=== PATIENT | female | born 1975 | race Caucasian/White ===

== ENCOUNTER 2018-10-19 13:46 | Outpatient (CLI) | payer BC, SELFPAY ==
[2018-10-19 15:57] LABS: Glucose 90 mg/dL (70-100); TSH (W/Ref FT4) 2.23 uIU/mL (0.358-3.74)
== END 2018-10-19 14:06 ==
PROVIDERS: PCP Nurse Practitioner; Visit Provider Nurse Practitioner
DX: E03.9 Hypothyroidism, unspecified (principal)
CPT/HCPCS: 82947; 84443

== ENCOUNTER 2019-01-18 00:58 | Outpatient (CLI) | payer OTHER, SELFPAY ==
--- NOTE | 2019-01-18 12:10 | DI.MAMMO_ITS ---
SYMPTOM/DIAGNOSIS: SCREENING, Z12.31 MAMMOGRAMS: Mammograms were interpreted according to the usual protocol including computer analysis with CAD system, tomosynthesis and C view imaging. Comparison with prior examinations. Breast density B. No suspicious masses or microcalcifications are seen. There is no definite evidence of malignancy. IMPRESSION: Negative mammogram. Routine screening is recommended. Category I. MQSA ASSESSMENT OF FINDINGS: Negative. Category 1. Patient will receive a letter notifying them of these results. BI-RADS category B. There are scattered areas of fibroglandular density.
== END 2019-01-18 01:18 ==
PROVIDERS: PCP Nurse Practitioner; Visit Provider Nurse Practitioner
DX: Z12.31 Encounter for screening mammogram for malignant neoplasm of breast (principal)
CPT/HCPCS: 77063; 77067

== ENCOUNTER 2019-10-20 11:40 | Outpatient (REF) | payer OTHER, SELFPAY ==
[2019-10-20 19:20] LABS: HCT 38.9 % (36.0-46.0); Mean Corp. HGB Concentration 33.4 g/dL (32.0-36.0); Mean Corpuscular Hemoglobin 28.3 pg (27.0-33.0); Mean Corpuscular Volume 84.7 fL (80-95); Platelet Count 242 x1000/uL (130-400); RBC 4.59 m/cumm (4.00-5.20); RBC Distribution Width 13.5 % (11.7-14.6); White Blood Cell Count 5.34 k/cumm (4.4-10.8)
[2019-10-20 19:31] LABS: Total Iron Binding Capacity 360 ug/dL (250-450)
[2019-10-20 20:06] LABS: ALT 32 U/L (14-59); AST 17 U/L (15-37); Alkaline Phosphatase 26 U/L (46-116); BUN 12 mg/dL (7-18); Bilirubin, Total 0.5 mg/dL (0.2-1.0); Calcium 8.7 mg/dL (8.5-10.1); Chloride 102 mmol/L (98-107); Ferritin 24 ng/mL (8-252); Glucose 89 mg/dL (74-106); Potassium 3.6 mmol/L (3.5-5.1); Sodium 140 mmol/L (136-145); TSH (W/Ref FT4) 2.14 uIU/mL (0.36-3.74); Total Protein 7.3 g/dL (6.4-8.2); Vitamin B12 607 pg/mL (193-986)
== END 2019-10-20 12:00 ==
LOC: LBO 11:40
PROVIDERS: PCP Nurse Practitioner; Visit Provider Nurse Practitioner
DX: E03.9 Hypothyroidism, unspecified (principal); R53.83 Other fatigue
CPT/HCPCS: 80053; 85027; 82607; 82728; 83550; 84443

== ENCOUNTER 2021-03-06 03:01 | Outpatient (CLI) | payer BC, SELFPAY ==
[2021-03-07 14:46] LABS: COVID-19 RT-PCR UVMMC Result Positive (Negative)
== END 2021-03-06 03:02 | disposition home or self-care (01) ==
LOC: LBO 03:01
PROVIDERS: PCP Nurse Practitioner; Visit Provider Nurse Practitioner
DX: Z20.822 Contact with and (suspected) exposure to COVID-19 (principal); R53.81 Other malaise
CPT/HCPCS: U0003

== ENCOUNTER 2021-04-24 01:12 | Outpatient (CLI) | payer BC, SELFPAY ==
--- NOTE | 2021-04-24 08:45 | DI.MAMMO_ITS ---
Exam(s) MAMMO SCREENING EXAM: MAMMO SCREENING CLINICAL HISTORY: screening, Z12.39. TECHNIQUE: Bilateral full field digital CC and MLO mammographic images were obtained with 3D tomosyn thesis and utilizing computer aided detection (CAD). COMPARISON: Prior mammograms dating back to 2012, the most recent being January 2019. FINDINGS: Asymmetric density in the left breast is unchanged from prior studies. Asymmetric densities in the r ight breast also unchanged from prior studies. There are no new spiculated masses nor malignant appearing microcalcification groups. There is no significant architectural distortion nor skin thickening-retraction. IMPRESSION: Stable benign findings. No radiographic evidence of malignancy. BI-RADS Category 2 - Benign Findings Breast Density - Category B - Scattered areas of fibroglandular density Breast density Category C or D implies that the patient has dense breast tissue. Dense breast tissue can make it harder to find cancer on a mammogram. Dense breast tissue is also associated with an incr eased risk of breast cancer. This information about the result of the mammogram report was provided to the patient to raise their awareness. Use this report when you speak with the patient about their risks for breast cancer, which includes their family history. At that time, you may recommend additional screening tests (Ultrasoun d or MRI) as these tests may add significant information. A negative radiographic report should not delay biopsy if a dominant or clinically suspicious mass is present. Up to ten percent of cancers are not identified on mammography. A negative report may reinforce clinical impression. Adenosis and dense breasts may obscure an underlying neoplasm. False positive reports average 6 to 10%. Patient will receive a letter notifying them of these results.
[2021-04-24 14:48] LABS: HCT 35.5 % (36.0-46.0); HGB 11.5 g/dL (11.2-15.7); MCHC 32.4 % (32.0-36.0); MCV 86.4 fL (80-95); MPV 10.3 fL (8.0-11.0); Platelet Count 240 10^3/uL (130-400); RBC 4.11 10^6/uL (3.93-5.22); RDW 13.6 % (11.7-14.6); RDW-SD 42.5 fL; WBC 7.19 10^3/uL (4.4-10.8)
[2021-04-24 16:04] LABS: Ferritin 22 ng/mL (8-252); TSH (W/Ref FT4) 1.35 uIU/mL (0.36-3.74); Vitamin B12 491 pg/mL (193-986)
== END 2021-04-24 01:32 ==
PROVIDERS: PCP Nurse Practitioner; Visit Provider Nurse Practitioner
DX: Z12.31 Encounter for screening mammogram for malignant neoplasm of breast (principal)
CPT/HCPCS: 36415; 77063; 77067; 85027; 82607; 82728; 84443

== ENCOUNTER 2021-04-24 15:49 | Outpatient (REF) | payer BC, SELFPAY ==
--- NOTE | 2021-04-24 15:00 | PAPFT_PTH ---
PATIENT: Paola Harp LOC: [facility] U#:[id number] AGE/SX: 45/F ROOM: RE04/24/[address]: MARY ANN Patrick : 1975 BED: DIS: 04/24/2021 SPEC #: [id number] RECD: 04/24/21 18:01 STATUS: GET MERINO #: [id number] SEAN: 04/24/21 15:[address]: Yris Seymour DEPT: [facility] Cytology RECD BY: Carine Aguilar ENTERED: 04/24/21 18:01 SP TYPE: PAPFT CHENG DR: Pat Olmstead APRN Tissues: 1 - CX/ENDOCX FOR PAP SMEARS Procedures: PAP THIN PREP/[facility] Screening HPV DNA PROBE Comments: [id number]
== END 2021-04-24 15:50 | disposition home or self-care (01) ==
LOC: LBN 15:49
PROVIDERS: PCP Nurse Practitioner; Visit Provider Nurse Practitioner Family
DX: Z12.4 Encounter for screening for malignant neoplasm of cervix (principal); Z11.51 Encounter for screening for human papillomavirus (HPV)
CPT/HCPCS: 88142; 87624

== ENCOUNTER → 2022-08-14 01:51 | Outpatient (CLI) | payer BC, SELFPAY ==
--- NOTE | 2022-08-14 11:17 | DI.MAMMO_ITS ---
Exam(s) MAMMO SCREENING EXAM: MAMMO SCREENING CLINICAL HISTORY: screening,z12.39 TECHNIQUE: Mammograms were interpreted according to the usual protocol including computer analysis w [employer] CAD system, tomosynthesis and C-view imaging. COMPARISON: 2012 through 2020 FINDINGS: The breasts are composed of scattered fibroglandular densities, Breast Density category B. No suspicious masses or suspicious microcalcifications are seen. No skin thickening or abnormal axillary lymph nodes are seen. There has been no significant change from prior exams. IMPRESSION: BI-RADS Category 1, Negative mammogram Yearly screening mammography is recommended. Breast Density - Category B, scattered fibroglandular densities. A negative radiographic report should not delay biopsy if a dominant or clinically suspicious mass is present. Up to ten percent of cancers are not identified on mammography. A negative report may reinforce clinical impression. Adenosis and dense breasts may obscure an underlying neoplasm. False positive reports average 6 to 10%. Patient will receive a letter notifying them of these results.
== END ==
PROVIDERS: PCP Nurse Practitioner; Visit Provider Nurse Practitioner
DX: Z12.31 Encounter for screening mammogram for malignant neoplasm of breast (principal)
CPT/HCPCS: 77063; 77067

== ENCOUNTER 2023-04-01 14:33 | Outpatient (CLI) | payer BC, SELFPAY ==
[2023-04-01 10:57] LABS: Abs Immature Grans 0.03 10^3/uL (0.0-0.06); Absolute Basophil Count 0.04 10^3/uL (0.0-0.2); Absolute Eosinophil Count 0.21 10^3/uL (0.0-0.7); Absolute Monocyte Count 0.65 10^3/uL (0.1-0.8); Absolute Neutrophil Count 3.42 10^3/uL (1.2-6.7); Basophils % 0.6; Eosinophils % 3.1; HCT 39.8 % (36.0-46.0); HGB 12.9 g/dL (11.2-15.7); Immature Grans % 0.4; Lymphocytes % 35.6; MCH 27.6 pg (27.0-33.0); MCHC 32.4 % (32.0-36.0); MCV 85 fL (80-95); MPV 9.8 fL (8.0-11.0); Monocytes % 9.6; Neutrophils % 50.7; Platelet Count 239 10^3/uL (130-400); RBC 4.67 10^6/uL (3.93-5.22); RDW 13.8 % (11.7-14.6); RDW-SD 43.3 fL; WBC 6.75 10^3/uL (4.4-10.8)
[2023-04-01 10:59] LABS: ESR 8 mm/hr (0-20)
[2023-04-01 11:51] LABS: Vitamin D 25 Total 43.7 ng/mL (30-100)
[2023-04-01 11:55] LABS: Hemoglobin A1C 5.6 % (<5.7)
[2023-04-01 11:59] LABS: ALT 27 U/L (14-59); AST 14 U/L (15-37); Albumin 3.9 g/dL (3.4-5.0); Alkaline Phosphatase 31 U/L (46-116); Anion Gap 8.6 mmol/L (3-11); BUN 12 mg/dL (7-18); Bilirubin, Total 0.5 mg/dL (0.2-1.0); C-Reactive Protein 0.19 mg/dL (0.0-0.3); CO2 27.4 mmol/L (21.0-32.0); CREATININE 0.8 mg/dL (0.55-1.02); Chloride 103 mmol/L (98-107); Estimated GFR 90.27 (mL/min/1.73m2); Ferritin 25 ng/mL (8-252); Glucose 91 mg/dL (74-106); Potassium 3.8 mmol/L (3.5-5.1); Sodium 139 mmol/L (136-145); TSH (W/Ref FT4) 2.12 uIU/mL (0.36-3.74); Total Protein 7.7 g/dL (6.4-8.2); Vitamin B12 506 pg/mL (193-986)
[2023-04-01 12:13] LABS: Creatine Kinase 60 U/L (26-192)
[2023-04-01 17:18] LABS: Rheumatoid Factor <8.6 IU/mL (<12.0)
[2023-04-02 12:08] LABS: Lyme Ab w Rflx to Lyme Confirm Negative (Negative)
[2023-04-02 12:57] LABS: ANA Interpretation Negative (Negative)
[2023-04-04 09:51] LABS: Anaplasma phagocytophilum Negative (Negative); B. miyamotoi PCR Negative (Negative); Babesia divergens/MO-1 Negative (Negative); Babesia duncani Negative (Negative); Babesia microti Negative (Negative); Ehrlichia chaffeensis Negative (Negative); Ehrlichia ewingii/canis Negative (Negative); Ehrlichia muris eauclairensis Negative (Negative)
== END 2023-04-01 14:34 | disposition home or self-care (01) ==
LOC: LBO 14:34
PROVIDERS: PCP Nurse Practitioner; Visit Provider Nurse Practitioner
DX: E66.9 Obesity, unspecified (principal); M25.50 Pain in unspecified joint; M62.81 Muscle weakness (generalized); R53.83 Other fatigue; E11.9 Type 2 diabetes mellitus without complications
CPT/HCPCS: 36415; 80053; 82306; 82550; 85652; 87798; 82607; 82728; 83036; 84443; 85025; 86038; 86140; 86431; 86618

== ENCOUNTER 2023-04-25 07:05 | Day surgery (SDC) | payer BC, SELFPAY ==
--- NOTE | 2023-04-24 15:33 | W.COLOREPORT ---
Date of service: 04/25/23 Time of Service: 09:44 Colonoscopy Report Date of procedure: 04/25/23 Pre-op diagnosis general: chronic constipation/second degree family member w/ CRC cancer Post-op diagnosis procedure note: other (same + Melanosis coli ) Surgeon: Pratima Max Anesthesia Type: General:No Airway Estimated blood loss (mL): 0 Complications: None Disposition: no change Prep: Miralax/Dulcolax Retraction Time: 8 mins Procedure Description: After informed consent was obtained the patient was taken to the procedure room and placed in a left decubitous position. Monitors were applied and a time out was done. The patients name, date of , procedure, allergies to medications and metal in their body was reviewed. The patient was then sedated. Once sedated and comfortable a rectal exam was done. External exam : Large external hemorrhoids with no thrombosis. Internal exam revealed a normal sphincter tone and no palpable masses. The scope was then introduced and retrofelexed. Without internal hemorrhoidal tags were identified. The scope was then advanced to the cecum difficulty. The TI and appendiceal orifice were identified. There is some mild discoloration of the cecum consistent with melanosis coli. A biopsy was taken. All specimen is retrieved and no bleeding is noted. The prep was BBPS 3 in all segments for a total of 9. The scope was then slowly retracted over 8 minutes back into the rectum. There are no polyps, AVMs, or diverticula appreciated today. The scope was removed and the patient was woken up and taken back to Same day surgery in stable condition. The patient tolerated the procedure well and there were no immediate complications. Follow up: The patient should follow up in 5 years unless they develop changes in bowel habits or other new gastrointestinal complaints.
--- NOTE | 2023-04-24 15:35 | PDOC.DSDIS_ITS ---
Date of service: 04/25/23 Time of Service: 09:36 Discharge Plan Disposition Patient Disposition: Home Condition: Good Discharge Details Reason For Visit: Colonoscopy Attending Provider: Pratima Max Primary Care Provider: Pat Olmstead Home Meds and New Rx's Prescriptions: New polyethylene glycol 3350 [Miralax] 17 gram/dose powder 17 g PO DAILY Qty: 510 12RF Continued magnesium oxide 500 mg capsule 500 mg PO DAILY cholecalciferol (vitamin D3) 25 mcg (1,000 unit) capsule 25 mcg PO DAILY magnesium hydroxide [Milk of Magnesia] 400 mg/5 mL suspension 5 ml PO DAILY PRN lorazepam 0.5 mg tablet 0.5 mg PO DAILY PRN (Reason: anxiety) Qty: 10 0RF ondansetron HCl 4 mg tablet 4 mg PO Q8H PRN (Reason: nausea and vomiting) Qty: 20 0RF albuterol sulfate [ProAir HFA] 90 mcg/actuation HFA aerosol inhaler 2 puff Inhalation Q4H PRN Qty: 8.5 12RF Rx Instructions: DX;ASTHMA. INTOLERANT OF XOPENEX triamcinolone acetonide 0.5 % cream 1 applic Topical BID PRN (Reason: rash) Qty: 80 3RF Rx Instructions: APPLY THIN LAYER TO hands UP TO 3X/DAY. DO NOT USE FOR MORE THAN 2 CONSECUTIVE WEEKS. levothyroxine 50 mcg tablet 50 mcg PO DAILY Qty: 90 3RF Discontinued bisacodyl [Dulcolax (bisacodyl)] 5 mg tablet,delayed release (DR/EC) 5 mg PO ONCE Qty: 4 0RF Rx Instructions: Take per colonoscopy instructions provided by ordering providers office polyethylene glycol 3350 17 gram/dose powder 17 g PO ONCE Qty: 238 0RF Rx Instructions: Take per colonoscopy instructions provided by ordering providers office Discharge Instructions Additional Instructions: DSU Colonoscopy Post- Op Instructions Instructions for Everyone who is given Anesthesia: For your safety, please do the following for the next twenty-four (24) hours: *Do Not operate a motor vehicle (car, truck, motorcycle, etc.) *Do Not drink alcoholic beverages or use any recreational drugs for the first 24 hours or while taking pain medications. The medications in your body may have a reaction that can be dangerous. *Do Not make any important decisions or sign any important papers. Findings: external hemorrhoids. Otherwise normal Follow up: repeat in 5yrs time Starting a Fiber Supplement Dietary fiber is a plant-based nutrient that's necessary for the healthy functioning of your digestive system.? ?In addition to helping your bowels stay regular, it's also useful for maintaining optimum cholesterol and blood sugar levels as well as a healthy weight. Although it's technically a carbohydrate, it's not the kind that can be broken down into digestible sugars by the body. Instead, fiber travels through your digestive system while bulking and softening your stool?making it easier to pass. It also helps absorb excess blood sugars and cholesterols. The [employer] recommends 30 grams (g) of fiber a day for men, and 25g a day for women. Fiber is found in fruits, vegetables, legumes, and whole grains, and is an important part of the diet. But because many people find it difficult to eat the recommended quantity of 25 to 38 g per day, fiber supplementation can be extremely helpful to ease the symptoms of a variety of digestive discomforts like diarrhea and constipation. Today, many fiber supplements are found on the market containing one of three active ingredients: psyllium, methylcellulose, and polycarbophil Health Benefits If you have diarrhea, supplementing with fiber can bulk up the stool and reduce frequent urges to evacuate the bowel. If you have constipation, fiber supplements can soften your stool and speed up its movement through the colon. To understand how fiber helps relieve symptoms of both diarrhea and constipation, it's important to differentiate between soluble fiber and insoluble fiber. Soluble fiber forms a gel in your colon by absorbing water and retaining it in your stool, which makes bowel movements softer and easier to pass. Insoluble fiber bulks stool up, which also helps it move through your intestines more easily. Thus, fiber can also help you avoid hemorrhoids https://www.[employer]/jcfjneyggub-nesxtoir-6365834 and anal fissures https://www.[employer].com/negf-uer-vquk-fissures-8846554 that can develop when straining to pass a bowel movement. Additionally, supplementing with fiber can be part of a treatment plan for conditions such as irritable bowel syndrome https://www.[employer]/aaiowvmwk-islhu-vpqgvspl-overview-7782376 (IBS), various types of inflammatory bowel disease https://www.[employer]/phx-svoteu-ixuhihd-overview-5030046 (IBD) like Crohn's disease and ulcerative colitis, as well as diverticulosis https://www.[employer].com/rmrxbvwohyzy-axkoteb-2956644 . Fiber increases satiety, or fullness, and is thus helpful for those looking to lose weight or maintain a healthy weight. Sufficient fiber intake has also been shown to decrease the risk of certain cancers,? heart disease,? and diabetes. There is also evidence that enough fiber, when combined with a diet rich in Vitamin A, has a protective effect against food allergies. Possible Side Effects The potential side effects of fiber supplementation include: * Gas https://www.[employer].com/unxazirz-cmj-qvp-1745057 and gas pain * Abdominal bloating * Lowered blood sugar https://www.[employer]/hsoclumuejx-gidzk-naqrwnx-uouurl-lgu-hnthpold-6061675 * Diarrhea or constipation (if taken in excess) * Weight loss * Lessened effectiveness of medications and vitamins (if taken at the same time as fiber) -Side effects can sometimes be minimized by starting with a small amount and slowly increasing until stools become softer and more frequent. Because of the way fiber supplements bulk up in the intestinal tract and absorb surrounding materials, they can interfere with the body's ability to assimilate medications, vitamins, and nutrients. For that reason, it's important to consume fiber supplements at least one hour after, or two hours before, taking medi cations and important vitamins. This can sometimes be minimized by starting with a small amount and slowly increasing until stools become softer and more frequent. Dosage and Preparation Fiber supplements often come in the form of powders meant to be mixed with water or another liquid. They also are available in capsule form, or as additives to foods like crackers, cookies, cereals, and bars. Dosage will vary based on the product and your desired effects. If you are healthy, it's generally recommended to start with a low dose of fiber and build up until you've reached optimum total daily fiber intake?roughly 25g for women and 38g for men?which should also include your dietary sources of fiber What to Look For When shopping for fiber, look closely at the ingredients to discover which form of fiber is used in each commercial brand. Also, if you're avoiding added sugar, salt, flavorings, or dyes, check the label for these common additives. If you're just starting with a fiber supplement, use a low dose and drink plenty of water when you take the supplement and throughout the day.? If you are not used to eating a high fiber diet/taking a supplement, start with about half of the recommended dose.? Always remember to take fiber with 8oz of water.? Continue at this dose for about 2-3 weeks, and then slowly increase up to the full dose daily.? Fiber is a natural product- you can increase the dose to 2-4 times a day as needed to have a formed BM without straining. Increase the dose slowly until you reach either the desired total intake or a specific effect. Psyllium Psyllium https://www.[employer].com/jzh-wkplygft-vi-psyllium-57939 is made from the seeds of a plant in the Plantago genus and contains about 70% soluble fiber and 30% insoluble fiber. It helps the stool absorb water and bulks it up, making?it easier to pass. It also breaks down in the gut (a process called fermentation) and becomes a food source for the good bacteria that reside there. Psyllium is used for treating constipation, irritable bowel syndrome (IBS), and diverticulosis. In addition, psyllium may lower cholesterol ?levels and provide some protection from heart disease.? On the downside, psyllium may cause intestinal gas and contains a small number of calories (roughly 20 calories per tablespoon). Psyllium is sold under the brand names Metamucil, Fiberall, Hydrocil, Konsyl, Perdiem, and Serutan. Methylcellulose Methylcellulose is a non-allergenic and non-fermentable fiber created from the cell nowak of plants. Instead of being absorbed by the intestinal tract, methylcellulose pulls in water to create a softer stool. Methylcellulose is ofte n used to treat constipation, diverticulosis, IBS, and some causes of diarrhea. Because it does not ferment, it is less likely than psyllium to cause intestinal gas; however, methylcellulose does not feed healthy gut bacteria the way psyllium does. It can be used termite control technician but it should be noted that, because it can interfere with absorption, methylcellulose should be taken apart from any prescribed medications. Methylcellulose is sold under the brand name Citrucel. What are the best dietary sources of fiber? Whether or not you choose to supplement with fiber, it's still important to include a variety of high-fiber foods in your diet, such as: * Fresh fruit (pears, apples, strawberries, bananas) * Fresh vegetables (broccoli, Brussel sprouts, beets, and carrots) * Legumes (lentils, split peas, kidney beans, chickpeas, black beans, spaulding beans) * Whole Grains (quinoa, oats, brown rice, millet, barley) * Other food sources of fiber (popcorn, sweet potatoes, and jess) What time of day is best? Different manufacturers may have varying recommendations on when and how frequently to take fiber supplements. You may want to divide your daily dose into two or three portions to reduce bloating and gas that could occur when taking a large dose all at once. To avoid malabsorption, it's important to take medications or vitamins either one hour before, or two hours after, taking fiber supplements. If using a powdered form of fiber, be sure to dissolve it well. No matter what kind of fiber supplement you are using, be sure to drink plenty of water, at least 8ox, unless you are on fluid restrictions. Starting a Fiber Supplement Dietary fiber is a plant-based nutrient that's necessary for the healthy functioning of your digestive system.? ?In addition to helping your bowels stay regular, it's also useful for maintaining optimum cholesterol and blood sugar levels as well as a healthy weight. Although it's technically a carbohydrate, it's not the kind that can be broken down into digestible sugars by the body. Instead, fiber travels through your digestive system while bulking and softening your stool?making it easier to pass. It also helps absorb excess blood sugars and cholesterols. The [employer] recommends 30 grams (g) of fiber a day for men, and 25g a day for women. Fiber is found in fruits, vegetables, legumes, and whole grains, and is an important part of the diet. But because many people find it difficult to eat the recommended quantity of 25 to 38 g per day, fiber supplementation can be extremely helpful to ease the symptoms of a variety of digestive discomforts like diarrhea and constipation. Today, many fiber supplements are found on the market containing one of three active ingredients: psyllium, methylcellulose, and polycarbophil Health Benefits If you have diarrhea, supplementing with fiber can bulk up the stool and reduce frequent urges to evacuate the bowel. If you have constipation, fiber supplements can soften your stool and speed up its movement through the colon. To understand how fiber helps relieve symptoms of both diarrhea and constipation, it's important to differentiate between soluble fiber and insoluble fiber. Soluble fiber forms a gel in your colon by absorbing water and retaining it in your stool, which makes bowel movements softer and easier to pass. Insoluble fiber bulks stool up, which also helps it move through your intestines more easily. Thus, fiber can also help you avoid hemorrhoids https://www.[employer].com/cfrrpitkgec-ugxtchdf-7018941 and anal fissures https://www.[employer].com/dlxg-kml-hodq-fissures-3787393 that can develop when straining to pass a bowel movement. Additionally, supplementing with fiber can be part of a treatment plan for conditions such as irritable bowel syndrome https://www.[employer].com/jflmrxiqc-sxkay-xmqkzpoj-overview-6091704 (IBS), various types of inflammatory bowel disease https://www.[employer].com/yke-kkrlhu-pkpublo-overview-7445258 (IBD) like Crohn's disease and ulcerative colitis, as well as diverticulosis https://www.[employer].com/ldezkgylyrtn-woftfxs-0734067 . Fiber increases satiety, or fullness, and is thus helpful for those looking to lose weight or maintain a healthy weight. Sufficient fiber intake has also been shown to decrease the risk of certain cancers,? heart disease,? and diabetes. There is also evidence that enough fiber, when combined with a diet rich in Vitamin A, has a protective effect against food allergies. Possible Side Effects The potential side effects of fiber supplementation include: * Gas https://www.[employer].com/qxahqhtp-kie-asw-0995883 and gas pain * Abdominal bloating * Lowered blood sugar https://www.[employer]/qkdrhqtrelw-statz-rqhxwdz-gfurrm-ljd-urqvwmbo-4137580 * Diarrhea or constipation (if taken in excess) * Weight loss * Lessened effectiveness of medications and vitamins (if taken at the same time as fiber) -Side effects can sometimes be minimized by starting with a small amount and slowly increasing until stools become softer and more frequent. Because of the way fiber supplements bulk up in the intestinal tract and absorb surrounding materials, they can interfere with the body's ability to assimilate medications, vitamins, and nutrients. For that reason, it's important to consume fiber supplements at least one hour after, or two hours before, taking medications and important vitamins. This can sometimes be minimized by starting with a small amount and slowly increasing until stools become softer and more frequent. Dosage and Preparation Fiber supplements often come in the form of powders meant to be mixed with water or another liquid. They also are available in capsule form, or as additives to foods like crackers, cookies, cereals, and bars. Dosage will vary based on the product and your desired effects. If you are healthy, it's generally recommended to start with a low dose of fiber and build up until you've reached optimum total daily fiber intake?roughly 25g for women and 38g for men?which should also include your dietary sources of fiber What to Look For When shopping for fiber, look closely at the ingredients to discover which form of fiber is used in each commercial brand. Also, if you're avoiding added sugar, salt, flavorings, or dyes, check the label for these common additives. If you're just starting with a fiber supplement, use a low dose and drink plenty of water when you take the supplement and throughout the day.? If you are not used to eating a high fiber diet/taking a supplement, start with about half of the recommended dose.? Always remember to take fiber with 8oz of water.? Continue at this dose for about 2-3 weeks, and then slowly increase up to the full dose daily.? Fiber is a natural product- you can increase the dose to 2-4 times a day as needed to have a formed BM without straining. Increase the dose slowly until you reach either the desired total intake or a specific effect. Psyllium Psyllium https://www.[employer].com/zod-ytiijjiy-cx-psyllium-76120 is made from the seeds of a plant in the Plantago genus and contains about 70% soluble fiber and 30% insoluble fiber. It helps the stool absorb water and bulks it up, making?it easier to pass. It also breaks down in the gut (a process called fermentation) and becomes a food source for the good bacteria that reside there. Psyllium is used for treating constipation, irritable bowel syndrome (IBS), and diverticulosis. In addition, psyllium may lower cholesterol ?levels and provide some protection from heart disease.? On the downside, psyllium may cause intestinal gas and contains a small number of calories (roughly 20 calories per tablespoon). Psyllium is sold under the brand names Metamucil, Fiberall, Hydrocil, Konsyl, Perdiem, and Serutan. Methylcellulose Methylcellulose is a non-allergenic and non-fermentable fiber created from the cell nowak of plants. Instead of being absorbed by the intestinal tract, methylcellulose pulls in water to create a softer stool. Methylcellulose is often used to treat constipation, diverticulosis, IBS, and some causes of diarrhea. Because it does not ferment, it is less likely than psyllium to cause intestinal gas; however, methylcellulose does not feed healthy gut bacteria the way psyllium does. It can be used longterm but it should be noted that, because it can interfere with absorption, methylcellulose should be taken apart from any prescribed medications. Methylcellulose is sold under the brand name Citrucel. What are the best dietary sources of fiber? Whether or not you choose to supplement with fiber, it's still important to include a variety of high-fiber foods in your diet, such as: * Fresh fruit (pears, apples, strawberries, bananas) * Fresh vegetables (broccoli, Brussel sprouts, beets, and carrots) * Legumes (lentils, split peas, kidney beans, chickpeas, black beans, spaulding beans) * Whole Grains (quinoa, oats, brown rice, millet, barley) * Other food sources of fiber (popcorn, sweet potatoes, and jess) What time of day is best? Different manufacturers may have varying recommendations on when and how frequently to take fiber supplements. You may want to divide your daily dose into two or three portions to reduce bloating and gas that could occur when taking a large dose all at once. To avoid malabsorption, it's important to take medications or vitamins either one hour before, or two hours after, taking fiber supplements. If using a powdered form of fiber, be sure to dissolve it well. No matter what kind of fiber supplement you are using, be sure to drink plenty of water, at least 8ox, unless you are on fluid restrictions. 1. No lifting over 20 pounds or strenuous activity for the first 24 hours after your procedure. After 24 hours there are no restrictions on your activity but you may feel fatigued for a few days. 2. After you arrive home you may have a light meal and return to your normal diet as you can tolerate it without feeling sick to your stomach. 3. You may have a bloated, gaseous feeling in your belly (abdomen) after a colonoscopy. Passing gas and belching will help. Walking or lying down on your left side with your knees flexed may relieve the discomfort. Call the office at [phone] (Office) or [phone] (Hospital) right away if you notice any of the following: a.Vomiting of blood or ?coffee ground stools?. b.Rectal bleeding 1Tbsp, blood clots or continuous bleeding. c.Severe belly (abdominal) pain. d.A hard distended belly (abdomen) and an inability to pass gas. 4. Please don?t expect to have a normal BM (bowel movement) for 2-3 days after your procedure. 5. If there are questions regarding the findings of your procedure, please contact your doctor 6. If you are unable to contact your doctor with a problem, contact the hospital at [phone]. 7. Continue all your regular medications unless directed otherwise. I understand the above instructions and have no questions. Signature of Patient or Adult Escort Name of Responsible Adult Escort Signature of Nurse Date/Time Stand Alone Forms: Ellen Eugene (VENKATU) Activity:: See above Diet:: See above Discharge Orders Discharge Orders: Discharge Order (Routine); Ordered 04/24/23 Ordered By: Pratima Max DS: Diagnosis Discharge Diagnosis (1) Family history of secondary colorectal cancer: Status: Acute Asessment and Plan: The patient is seen and examined after their colonoscopy.? The patient has been able to pass gas.? They are not having abdominal pain.? They have been able to tolerate liquids and a snack.? They do not have any nausea or vomiting.? They are not having any chest pain or shortness of breath.??? They are not having any rectal bleeding. Their vital signs have been stable-see nursing notes. We discussed findings during their colonoscopy, and any biopsies that were done/polyps that were removed. The patient will be sent a letter with any biopsy results, and when to repeat the colonoscopy.-see discharge instructions. Patient was given explicit instructions to follow-up regarding colonoscopy-refer to discharge instructions.? We reviewed resumption of medications. prefer fiber use to laxatives. d/w pt and pt given literature. Patient verbalized understanding and discharged in stable and satisfactory condition- See nursing notes.
--- NOTE | 2023-04-25 06:45 | W.ANESPRE ---
General Info Date of Service Date Performed: 04/25/23 Height: 5 ft Weight: 70.76 kg Body Mass Index (BMI): 30.4 Surgical Procedure: Operation Date: 04/25/23 08:35 Proposed Procedure Side Surgeon rakesh Max, Meds Allergies and Home Medications Allergies Allergy/AdvReac Type Severity Reaction Status Date / Time Penicillins Allergy Intermediate rash Verified 04/25/23 07:41 levalbuterol HCl AdvReac ineffective Verified 04/25/23 07:41 [From Xopenex] Home Medication Medication Instructions Recorded cholecalciferol (vitamin D3) 25 25 mcg PO DAILY 04/24/21 mcg (1,000 unit) capsule magnesium oxide 500 mg capsule 500 mg PO DAILY 04/24/21 levothyroxine 50 mcg tablet 50 mcg PO DAILY #90 tabs 05/16/22 albuterol sulfate 90 mcg/actuation 2 puff inhalation Q4H PRN #8.5 07/16/22 aerosol inhaler (ProAir HFA) grams triamcinolone acetonide 0.5 % 1 applic topical BID PRN rash #80 07/16/22 topical cream grams lorazepam 0.5 mg tablet 0.5 mg PO DAILY PRN anxiety #10 04/01/23 tabs ondansetron HCl 4 mg tablet 4 mg PO Q8H PRN nausea and 04/01/23 vomiting #20 tabs magnesium hydroxide 400 mg/5 mL 5 ml PO DAILY PRN 04/10/23 oral suspension (Milk of Magnesia) polyethylene glycol 3350 17 17 g PO DAILY #510 grams 04/24/23 gram/dose oral powder (Miralax) Current Visit Medications: Current Medications Generic Name Dose Route Start Last Admin Trade Name Freq PRN Reason Stop Dose Admin Hyoscyamine Sulfate 0.125 mg 04/25/23 03:28 Hyoscyamine 0.125 Mg Sl/Oral/Chew SL 05/25/23 03:27 DIRECTED PRN Ringer's Solution 1,000 mls @ 80 mls/hr 04/25/23 06:00 IV 05/24/23 23:59 INFUSION AMY IV Miscellaneous Supplies 1 each 04/25/23 06:00 Iv Access IV 05/24/23 23:59 DIRECTED AMY Ondansetron HCl 4 mg 04/25/23 03:28 Ondansetron 4 Mg/2 Ml Vial IVP 05/25/23 03:27 Q4H PRN PRN Nausea / Vomiting Sodium Chloride 0 ml 04/25/23 06:00 Normal Saline Flush 10 Ml Syr IV 05/24/23 23:59 PRN PRN Sodium Chloride 0 ml 04/25/23 06:00 Normal Saline 10 Ml Vial IJ 05/24/23 23:59 DIRECTED PRN Sterile Water 0 ml 04/25/23 06:00 Water,Injection,Sterile 10 Ml Vial IJ 05/24/23 23:59 DIRECTED PRN PFSH Active Problems Active Problems: Problem Status Onset Code Family history of secondary colorectal cancer Z80.0 Chronic constipation with overflow K59.09 Ann's thyroiditis ~03/2022 E06.3 Heart palpitations R00.2 COVID-19 U07.1 Routine medical exam Z00.00 Feels cold R68.89 Hair thinning L65.9 Fatigue R53.83 Varicose veins of both lower extremities I83.93 Mild intermittent asthma without complication 10/01/13 J45.20 Hypothyroidism 01/24/12 E03.9 Family hx-breast malignancy 01/24/12 Z80.3 Eczema 10/01/13 L30.9 Dermatitis, perioral 12/09/14 L71.0 BMI 33.0-33.9,adult 06/08/15 Z68.33 Asthma 10/01/13 J45.909 Medical History Medical History Abnormal Pap--sees [facility] HX HSIL pap 2006 -Bx benign Asthma Eczema Family history of breast cancer in first degree relative Hypothyroidism Iron deficiency anemia (01/24/12) Varicose veins of both lower extremities Surgical History Surgical History Cervical BX: HSIL (12/11/06) Cholecystectomy (01/08/95) Tobacco Smoking/Tobacco Use Status: Never Alcohol Alcohol Intake: current Alcohol intake frequency: holidays/special occasions only Substance Use Substance use: Never Substance use type: does not use Prental History History 3 Para 3 Hx # Term Pregnancies Multiple births Hx # Pregnancies Ectopic pregnancies AB induced Hx Number of Living Children AB spontaneous Vital Signs and Lab Results Lab Results Blood Type / Crossmatch: No Data to Display Complete Blood Count: White Blood Count 6.75 10^3/uL (4.4-10.8) 04/01/23 10:51 Red Blood Count 4.67 10^6/uL (3.93-5.22) 04/01/23 10:51 Hemoglobin 12.9 g/dL (11.2-15.7) 04/01/23 10:51 Hematocrit 39.8 % (36.0-46.0) 04/01/23 10:51 Platelet Count 239 10^3/uL (130-400) 04/01/23 10:51 Complete Metabolic Panel: Sodium 139 mmol/L (136-145) 04/01/23 10:51 Potassium 3.8 mmol/L (3.5-5.1) 04/01/23 10:51 Chloride 103 mmol/L (98-107) 04/01/23 10:51 Carbon Dioxide 27.4 mmol/L (21.0-32.0) 04/01/23 10:51 BUN 12 mg/dL (7-18) 04/01/23 10:51 Creatinine 0.8 mg/dL (0.55-1.02) 04/01/23 10:51 Est GFR (CKD-EPI 2020) 90.27 (mL/min/1.73m2) 04/01/23 10:51 Calcium 9.0 mg/dL (8.5-10.1) 04/01/23 10:51 Albumin 3.9 g/dL (3.4-5.0) 04/01/23 10:51 Glucose 91 mg/dL (74-106) 04/01/23 10:51 Hemoglobin A1c 5.6 % (<5.7) 04/01/23 10:51 C-Reactive Protein 0.19 mg/dL (0.0-0.3) 04/01/23 10:51 Liver Function Panel: Alanine Aminotransferase (ALT/SGPT) 27 U/L (14-59) 04/01/23 10:51 Aspartate Amino Transf (AST/SGOT) 14 U/L (15-37) L 04/01/23 10:51 Coagulation Panel: No Data to Display Cardiac Panel: Creatine Kinase 60 U/L (26-192) 04/01/23 Arterial Blood Gas: No Data to Display Venous Blood Gas: No Data to Display Pancreas Panel: No Data to Display Thyroid Panel: Thyroid Stimulating Hormone (TSH) 2.12 uIU/mL (0.36-3.74) 04/01/23 10:51 Infectious Disease: No Data to Display Blood Cultures: No Data to Display Toxicology Panel: No Data to Display Panel: Beta HCG, Quantitative Pending 04/25/23 08:15 Anesthesia Assessment and Plan Anesthesia History Personal History: No History of Anesthesia Complications Family History: No Family History of Anesthesia Complications Exercise Tolerance Exercise Tolerance: Metabolic Equivalents>4 Pertinent Negatives Pertinent Negatives: No Symptoms of GERD Cardiac & Pulmonary Exam Cardiac Exam: Normal S1/S2 Heart Sounds Pulmonary Exam: Clear Bilateral Breath Sounds Implantable Cardiac Device Does patient have a Pacemaker or an ICD?: No Airway Exam Known Difficult Airway: No Mallampati Class: 2 Mouth Opening: Normal (> 3cm) Thyromental Distance: Greater than 3 cm Neck Range of Motion: Full ROM Neck Circumference: Normal Teeth Condition: Normal Dentition ASA Classification ASA Score: ASA 2 Emergency Case?: No NPO Status NPO Status: NPO Clears >2 hours, Solids >8 hours Status Status: Negative HCG Anesthesia Plan Resuscitation Status: Full Code Anesthesia Technique: General Anesthesia Airway Planned: Natural Airway Monitors Used: Standard Monitors
[2023-04-25 07:14] VITALS: BP 109/82; PULSE 88; RESP 16; TEMP 36; O2SAT 100
[2023-04-25] MEDS: Lactated Ringers 1,000 ML 80 ML IV (08:03)
--- NOTE | 2023-04-25 09:10 | BOWEL_PTH ---
PATIENT: Paola Harp LOC: [facility] U#:[id number] AGE/SX: 47/F ROOM: RE04/25/[address]: Pratima Max : 1975 BED: DIS: 04/25/2023 SPEC #: [id number] RECD: 04/25/23 12:46 STATUS: GET RE #: [id number] SEAN: 04/25/23 09:[address]: Pratima Max DEPT: Surgical Specimen RECD BY: Carine Aguilar ENTERED: 04/25/23 12:47 SP TYPE: Bowel OTHR DR: Pat Olmstead APRN Tissues: 1 - BIOPSY BOWEL Procedures: GROSS AND MICRO LEVEL 4 Comments: [id number]
[2023-04-25 09:23] VITALS: BP 108/79; PULSE 85; RESP 18; TEMP 36.5; O2SAT 98
[2023-04-25 09:31] VITALS: BMI 30.4
[2023-04-25 09:50] VITALS: BP 130/86; PULSE 81; RESP 18; TEMP 36.6; O2SAT 100
--- NOTE | 2023-04-25 10:09 | W.ANESPOSTOP ---
Postoperative Evaluation Date, Time and Location Date Performed: 04/25/23 Time Performed: 10:10 Patient Location: Day Surgery Unit Vital Signs Most Recent Imported Vital Signs: Most Recent Vital Signs Temp Pulse Resp BP Pulse Ox 36.5 C 85 18 108/79 98 04/25/23 09:23 04/25/23 09:23 04/25/23 09:23 04/25/23 09:23 04/25/23 09:23 Pain Score Most Recent Pain Score: Most Recent Pain Score Pain Level 0 04/25/23 09:23 Assessment Mental Status: Awake (Alert & Oriented to Patient Baseline) Airway and Respiratory Function: Patent airway with normal (patient baseline) respiratory exam Cardiovascular Function: Hemodynamically Stable Hydration Status: Adequately Hydrated Nausea & Vomiting: No Nausea or Vomiting Pain: Pt. Denies Any Pain Peripheral Nerve Block: Patient did not receive a nerve block Postoperative Comments:: Some mild uvulitis, assessed at bedside. discussed potentially due to some continuous swallowing during case. Recommended saltwater gargling TID. Answered questions. discussed patient will be called on Friday and if uvula still causing concern can request call from anesthesia. Patient appropriate for discharge at this time.
== END 2023-04-25 10:07 | disposition home or self-care (01) ==
PROVIDERS: PCP Nurse Practitioner; Visit Provider Surgery
PROC: 0DJD8ZZ Inspection of Lower Intestinal Tract, Via Natural or Artificial Opening Endoscopic (ICD-10-PCS; CPT 45378; principal; 2023-04-25 08:30)
DX: K59.09 Other constipation (principal); Z80.0 Family history of malignant neoplasm of digestive organs; K63.89 Other specified diseases of intestine
CPT/HCPCS: 45380; 88305; 84702

== ENCOUNTER 2023-11-19 08:21 | Outpatient (CLI) | payer BC, SELFPAY ==
--- NOTE | 2023-11-19 08:15 | RT.EKG_ITS ---
APPROVED REPORT Exam: Resting ECG Reason for Exam: Heart palpitations Patient Location: O HR:87 bpm ECG Measurements Heart Rate 87 AXIS IN 141 P 58 QRSd 81 QRS 34 QT 367 T 24 QTc 442 Conclusion Sinus rhythm...normal P axis, V-rate 50- 99 Normal Electrocardiogram I have reviewed and interpreted ECG and agree with software generated interpretation.
== END 2023-11-19 08:22 | disposition home or self-care (01) ==
LOC: DI.KIM 08:21
PROVIDERS: PCP Nurse Practitioner; Visit Provider Student in an Organized Health Care Education/Training Program
DX: R00.2 Palpitations (principal)
CPT/HCPCS: 93010

== ENCOUNTER 2023-11-21 10:31 | Outpatient (RCR) | payer BC, SELFPAY ==
--- NOTE | 2023-11-21 10:30 | HOLTER_ITS ---
APPROVED REPORT Exam Type: HOLTER MONITOR APPLICATION Reason for Test: eval for arhythmia Patient Location: O Conclusion 1. Sinus rhythm throughout, rate range 54-121(average 77 ) bpm 2. Rare PVC and PAC. No SVT or VT.
== END 2023-12-10 23:59 | disposition home or self-care (01) ==
LOC: CARDOPNVT 10:31
PROVIDERS: PCP Nurse Practitioner; Visit Provider Internal Medicine Cardiovascular Disease
DX: R00.2 Palpitations (principal)
CPT/HCPCS: 93225; 93226

== ENCOUNTER → 2024-05-26 02:30 | Outpatient (CLI) | payer BC, SELFPAY ==
--- NOTE | 2024-05-26 07:30 | DI.MAMMO_ITS ---
Exam(s) MAMMO SCREENING EXAM: MAMMO SCREENING CLINICAL HISTORY: screening,z12.39. TECHNIQUE: Bilateral full field digital CC and MLO mammographic images were obtained with 3D tomosyn thesis and utilizing computer aided detection (CAD). COMPARISON: Prior mammograms dating back to 2014 were reviewed, most recent being August 2022. Significant family history. Her mother was diagnosed with breast cancer prior to age 40. FINDINGS: There has been no significant change in the appearance and distribution of the fibroglandular tissue. There are no CAD designations. There are no new spiculated masses nor malignant appearing microcalcification groups. Small area of asymmetric tissue in the right breast is unchanged from 2015 and therefore benign. There is no significant architectural distortion nor skin thickening-retraction. IMPRESSION: No radiographic evidence of malignancy. BI-RADS Category 1 - Negative Breast Density - Category B - Scattered areas of fibroglandular density Breast density Category C or D implies that the patient has dense breast tissue. Dense breast tissue can make it harder to find cancer on a mammogram. Dense breast tissue is also associated with an incr eased risk of breast cancer. This information about the result of the mammogram report was provided to the patient to raise their awareness. Use this report when you speak with the patient about their risks for breast cancer, which includes their family history. At that time, you may recommend additional screening tests (Ultrasoun d or MRI) as these tests may add significant information. A negative radiographic report should not delay biopsy if a dominant or clinically suspicious mass is present. Up to ten percent of cancers are not identified on mammography. A negative report may reinforce clinical impression. Adenosis and dense breasts may obscure an underlying neoplasm. False positive reports average 6 to 10%. Patient will receive a letter notifying them of these results.
--- NOTE | 2024-05-26 07:30 | DI.US_ITS ---
Exam(s) US SOFT TISS EXTREMITY/GROIN EXAM: US SOFT TISS EXTREMITY/GROIN CLINICAL HISTORY: NT mass left groin,? vascular vs lipoma. TECHNIQUE: Ultrasound was performed using standard protocol. COMPARISON: No exams were available for comparison FINDINGS: Dedicated ultrasound examination of the area of clinical concern in the left groin was performed. This nontender finding is better seen and better felt when the patient is standing. The palpable finding corresponds to a focal dilated segment of the upper greater saphenous vein which does not appear thrombosed. This is near the saphenofemoral junction. Otherwise, there are 3 benign-appearing lymph nodes in the groin above this level, these measuring 2. 3 x 0.5 x 0.8 cm, 1.4 x 0.5 x 1.0 cm, and 1.1 x 0.4 x 0.8 cm. No evidence of solid mass nor abnormal fluid collection. IMPRESSION: This patient's palpable finding corresponds to a segmental dilatation of the upper greater saphenous vein just proximal to the saphenofemoral junction. Incidentally noted are few small benign-appearing ipsilateral groin nodes DATA REPOSITORY:
== END ==
PROVIDERS: PCP Nurse Practitioner; Visit Provider Nurse Practitioner
DX: Z12.31 Encounter for screening mammogram for malignant neoplasm of breast (principal); N60.81 Other benign mammary dysplasias of right breast; I86.8 Varicose veins of other specified sites; R19.04 Left lower quadrant abdominal swelling, mass and lump; R59.0 Localized enlarged lymph nodes
CPT/HCPCS: 76882; 77063; 77067

== ENCOUNTER 2024-06-29 16:18 | Outpatient (CLI) | payer BC, SELFPAY ==
[2024-06-29 17:31] LABS: TSH (W/Ref FT4) 1.88 uIU/mL (0.36-3.74)
[2024-06-29 22:47] LABS: Hepatitis B Surface Ag Negative (Negative)
[2024-06-29 23:15] LABS: Hepatitis C Ab w Rflx HCV PCR Negative (Negative)
[2024-06-29 23:21] LABS: HIV-1/2 Ag & Ab Screen Negative (Negative)
[2024-06-30 09:44] LABS: Syphilis Serology (RPR) Negative (Negative)
[2024-06-30 13:06] LABS: Chlamydia Result Negative (Negative); GC Result Negative (Negative)
== END 2024-06-29 16:19 | disposition home or self-care (01) ==
LOC: LBO 16:18
PROVIDERS: PCP Nurse Practitioner; Visit Provider Advanced Practice Midwife
DX: Z11.3 Encounter for screening for infections with a predominantly sexual mode of transmission (principal); E03.9 Hypothyroidism, unspecified; Z13.220 Encounter for screening for lipoid disorders
CPT/HCPCS: 36415; 86803; 87340; 87389; 87491; 87591; 84443; 86592

== ENCOUNTER 2024-07-23 16:30 | Outpatient (REF) | payer BC, SELFPAY | END 2024-07-23 16:31 | disposition home or self-care (01) | LOC: LBN 16:30 | PROVIDERS: PCP Nurse Practitioner; Visit Provider Nurse Practitioner Family | DX: N94.89 Other specified conditions associated with female genital organs and menstrual cycle (principal); L53.9 Erythematous condition, unspecified; N89.8 Other specified noninflammatory disorders of vagina | CPT/HCPCS: 87480; 87510; 87660 ==

== ENCOUNTER 2025-07-22 03:52 | Outpatient (CLI) | payer SELFPAY ==
--- NOTE | 2025-07-22 16:05 | DI.MAMMO_ITS ---
Exam(s) MAMMO SCREENING EXAM: MAMMO SCREENING CLINICAL HISTORY: screening,Z12.39 TECHNIQUE: Bilateral full field digital CC and MLO mammographic images were obtained with 3D tomosynthesis and utilizing computer aided detection (CAD). COMPARISON: Comparison is made with prior examinations. FINDINGS: Masses/Architectural Distortion: There is increased asymmetric density in the central left breast on the craniocaudad view. This may represent overlying fibroglandular tissue, but a spot compression views requested for further evaluation. Microcalcifications: No suspicious pleomorphic-type are seen. Skin Thickening/Nipple Retraction: None. IMPRESSION: 1. Increased asymmetric density in the central left breast on the craniocaudad view. 2. This area should be further evaluated with a spot compression view. Ultrasound may be indicated at that time. BI-RADS Category 0 - Incomplete: Need additional imaging evaluation Breast Density - Category B - There are scattered areas of fibroglandular density. Breast density Category C or D implies that the patient has dense breast tissue. Dense breast tissue can make it harder to find cancer on a mammogram. Dense breast tissue is also associated with an increased risk of breast cancer. This information about the result of the mammogram report was provided to the patient to raise their awareness. Use this report when you speak with the patient about their risks for breast cancer, which includes their family history. At that time, you may recommend additional screening tests (Ultrasound or MRI) as these tests may add significant information. A negative radiographic report should not delay biopsy if a dominant or clinically suspicious mass is present. Up to ten percent of cancers are not identified on mammography. A negative report may reinforce clinical impression. Adenosis and dense breasts may obscure an underlying neoplasm. False positive reports average 6 to 10%. Patient will receive a letter notifying them of these results.
== END 2025-07-22 04:12 ==
PROVIDERS: PCP Nurse Practitioner; Visit Provider Nurse Practitioner Adult Health
DX: Z12.31 Encounter for screening mammogram for malignant neoplasm of breast (principal)
CPT/HCPCS: 77063; 77067

== ENCOUNTER 2025-08-02 00:53 | Outpatient (CLI) | payer SELFPAY ==
--- NOTE | 2025-08-02 09:45 | DI.MAMMO_ITS ---
Exam(s) MG MAMMO SCREEN CALL BACK UNI US BREAST LT COMPLETE EXAM: MG MAMMO SCREEN CALL BACK UNI CLINICAL HISTORY: INCREASED ASYMMETRIC DENSITY CENTRAL LEFT BREAST R92.8 ABNL MAMMO. TECHNIQUE: Craniocaudal and mediolateral oblique spot compression digital Mammography views of the leftbreast with Tomosynthesis and left breast ultrasound. COMPARISON: MG MG MAMMO SCREENING from 07/22/2025 US US BREAST LT COMPLETE from 08/02/2025 and exams back to 2018 FINDINGS: Mammography/Tomosynthesis: Masses: None seen. No persistent abnormality seen on the spot compression view, consistent with overlying fibroglandular tissue. Architectural Distortion: None seen. Microcalcifictions: No suspicious pleomorphic-type are seen. Skin Thickening/Nipple Retraction: None. Left breast US: Echotexture: Normal appearance of the glandular tissue. Shadowing: No suspicious foci. Cyst: None. Solid lesions: None seen. Ductal dilation: None. IMPRESSION: 1. No evidence of malignancy is noted. 2. Unless there is more urgent need, follow-up screening mammography is recommended, as per [place] [employer] guidelines. 3. The findings were discussed with the patient on the date of the examination. BI-RADS Category 1 - Negative Breast Density - Category B - There are scattered areas of fibroglandular density. Breast density Category C or D implies that the patient has dense breast tissue. Dense breast tissue can make it harder to find cancer on a mammogram. Dense breast tissue is also associated with an increased risk of breast cancer. This information about the result of the mammogram report was provided to the patient to raise their awareness. Use this report when you speak with the patient about their risks for breast cancer, which includes their family history. At that time, you may recommend additional screening tests (Ultrasound or MRI) as these tests may add significant information. A negative radiographic report should not delay biopsy if a dominant or clinically suspicious mass is present. Up to ten percent of cancers are not identified on mammography. A negative report may reinforce clinical impression. Adenosis and dense breasts may obscure an underlying neoplasm. False positive reports average 6 to 10%. Patient will receive a letter notifying them of these results.
== END 2025-08-02 01:13 ==
PROVIDERS: PCP Nurse Practitioner Adult Health; Visit Provider Nurse Practitioner Adult Health
DX: Z12.31 Encounter for screening mammogram for malignant neoplasm of breast (principal); R92.8 Other abnormal and inconclusive findings on diagnostic imaging of breast
CPT/HCPCS: 76642; 77063; 77067